=== PATIENT | male | born 1990 | race Caucasian/White ===

== ENCOUNTER 2022-11-19 09:11 | Emergency (ER) | payer MEDICAID ==
[~2022-11-19] VITALS: Ht 193 cm; Wt 112.3 kg
[2022-11-19 09:14] VITALS: BP 121/68
[2022-11-19 09:49] LABS: CLARITY,URINE CLOUDY (Clear); COLOR,URINE YELLOW (Yellow); GLUCOSE, URINE NEGATIVE (Neg); KETONES,URINE TRACE mg/dl (Neg); LEUKOCYTE ESTERASE ,URINE NEGATIVE (Neg); NITRITES, URINE NEGATIVE (Neg); OCCULT BLOOD,URINE LARGE (Neg); PROTEIN,URINE 30 mg/dl (Neg); UROBILINOGEN,URINE 0.2 E.U/dL (0.2-1.0)
[2022-11-19] MEDS ORDERED: ketorolac trometh. 30mg/ml inj. IV ONE (09:50)
[2022-11-19] MEDS ORDERED: normal saline 1000ML IV soln IVB ONE (09:50)
[2022-11-19 09:51] LABS: UA COLLECTION TYPE CLN CATCH MIDSTREAM
[2022-11-19 10:17] LABS: MUCUS STRANDS MANY /LPF (Neg); SQUAMOUS EPITHELIAL CELL,UR FEW /LPF (FEW)
[2022-11-19 10:19] LABS: RBC,URINE 20-50 /HPF (0-2); WBC,URINE 0-4 /HPF (0-4)
[2022-11-19 10:20] LABS: BACTERIA,URINE FEW /HPF (Neg)
[2022-11-19 10:22] LABS: CAL OXALATE CRYSTALS 4+ /HPF (NEGATIVE)
[2022-11-19] MEDS ORDERED: ondansetron/PF 4mg/2ml inj IV ONE (12:00)
[2022-11-19] MEDS ORDERED: morphine 4 MG/ML inj SYRINge IV ONE (12:00)
[2022-11-19] MEDS ORDERED: HYDR-3965 PO (12:54)
[2022-11-19] MEDS ORDERED: IBUP-1986 PO (12:54)
== END 2022-11-19 14:16 | disposition home or self-care (01) ==
LOC: ER 09:11
DX: N20.1 Calculus of ureter (principal); R11.2 Nausea with vomiting, unspecified; Z79.899 Other long term (current) drug therapy
CPT/HCPCS: 74176; 81001; 96361; 96374; 96375; 99285; J1885; J2270; J2405; J7030